=== PATIENT | male | born 1955 | race African-American/Black ===

== ENCOUNTER 2021-04-06 08:56 | Emergency (ER) | payer OTHER ==
[~2021-04-06] VITALS: Ht 177.8 cm; Wt 82.0 kg
[2021-04-06] MEDS ORDERED: KETOROLAC 15MG/ML VIAL IM ONE (10:45)
[2021-04-06 11:11] VITALS: BP 147/68
== END 2021-04-06 11:12 | disposition home or self-care (01) ==
LOC: ER 08:56
DX: M25.562 Pain in left knee (principal); W01.0XXA Fall on same level from slipping, tripping and stumbling without subsequent striking against object, initial encounter; X50.1XXA Overexertion from prolonged static or awkward postures, initial encounter; Y93.89 Activity, other specified; Y92.9 Unspecified place or not applicable
CPT/HCPCS: 73560; 96372; 99283; J1885

== ENCOUNTER 2022-02-04 12:20 | Emergency (ER) | payer OTHER ==
[~2022-02-04] VITALS: Ht 170.2 cm; Wt 77.0 kg
[2022-02-04] MEDS ORDERED: BENZONATATE 100MG CAPSULE PO NR (14:30)
[2022-02-04] MEDS ORDERED: ACETAMINOPHEN WITH CODEINE 300/30MG TABLET PO NR (14:30)
[2022-02-04] MEDS ORDERED: BENZ200C52 MT (15:14)
[2022-02-04 15:45] VITALS: BP 162/69
== END 2022-02-04 16:01 | disposition home or self-care (01) ==
LOC: ER 12:20
DX: J06.9 Acute upper respiratory infection, unspecified (principal)
CPT/HCPCS: 71045; 99283